=== PATIENT | male | born 1960 ===

== ENCOUNTER 2017-10-01 11:52 | Inpatient (IN) ==
[2017-10-01 14:40] LABS: Basophils % 0.2 % (0.0-0.8); Eosinophils # 0.2 10*3/uL (0.0-0.87); Hemoglobin 14.5 GM/DL (14.0-18.0); Immature Granulocytes % 0.2 %; Immature Granulocytes Absolute 0.01 #; Lymphocytes # 1.4 10*3/uL (1.4-4.0); Lymphocytes % 24.8 % (21.2-54.2); Mean Corpuscular HGB Conc 33.7 GM/DL (32-36); Mean Corpuscular Hemoglobin 31 PG (27-34); Mean Corpuscular Volume 90.7 FL (87-102); Mean Platelet Volume 9.8 FL (9.6-12.0); Monocytes # 0.3 10*3/uL (0.11-0.8); Monocytes % 5.8 % (1.7-12.7); Neutrophils # 3.8 10*3/uL (1.4-7.4); Platelet Count 229 T/CUMM (130-400); Red Blood Count 4.74 MC/CUMM (3.8-5.5); Red Cell Distribution Width 12.8 % (9.3-17.3); White Blood Count 5.7 T/CUMM (4-12)
[2017-10-01 15:05] LABS: Calcium 8.7 MG/DL (8.5-10.1); Potassium 3.7 MMOL/L (3.5-5.1)
[2017-10-01 20:42] LABS: Apearance,Urine CLEAR (Clear); Bacteria,Urine Occasional /HPF (Few); Bilirubin,Urine Negative (Negative); Blood, Urine Negative (Negative); Glucose,Urine (UA) >=500 mg/dL (Negative); Ketones,Urine Negative (Negative); Mucus,Urine Occasional /LPF (Occasional); Nitrite,Urine Negative (Negative); Protein,Urine Negative; Urine Color Yellow (Yellow); Urine Specific Gravity 1.008 (1.001-1.035); WBC,Urine 1 /HPF (0-6)
[2017-10-01 21:04] LABS: Troponin I Only 0.163 NG/ML (0.00-0.045)
[2017-10-02 05:21] LABS: Basophils % 0.5 % (0.0-0.8); Eosinophils # 0.2 10*3/uL (0.0-0.87); Eosinophils % 3.8 % (0.00-10.9); Hemoglobin 13.4 GM/DL (14.0-18.0); Immature Granulocytes % 0.2 %; Immature Granulocytes Absolute 0.01 #; Lymphocytes # 1.7 10*3/uL (1.4-4.0); Lymphocytes % 27.2 % (21.2-54.2); Mean Corpuscular HGB Conc 33.5 GM/DL (32-36); Mean Corpuscular Hemoglobin 31 PG (27-34); Mean Corpuscular Volume 91.1 FL (87-102); Mean Platelet Volume 9.9 FL (9.6-12.0); Monocytes # 0.4 10*3/uL (0.11-0.8); Monocytes % 6.8 % (1.7-12.7); Neutrophils # 3.9 10*3/uL (1.4-7.4); Neutrophils % 61.5 % (38.7-73.9); Platelet Count 207 T/CUMM (130-400); Red Blood Count 4.39 MC/CUMM (3.8-5.5); Red Cell Distribution Width 12.7 % (9.3-17.3); White Blood Count 6.3 T/CUMM (4-12)
[2017-10-02 05:42] LABS: Troponin I Only 0.163 NG/ML (0.00-0.045)
[2017-10-02 05:45] LABS: Calcium 8.2 MG/DL (8.5-10.1); Osmolality,Calculated 287.7 MOS/KG (273-304); Potassium 3.4 MMOL/L (3.5-5.1); Risk Ratio 2.42; Thyroid Stimulating Hormone 0.889 uIU/ml (0.358-3.74); VLDL CHOLESTEROL 16.2 MG/DL
[2017-10-03 05:48] LABS: Basophils % 0.2 % (0.0-0.8); Eosinophils # 0.2 10*3/uL (0.0-0.87); Eosinophils % 2.3 % (0.00-10.9); Hematocrit 38.9 VOL% (42.0-52.0); Hemoglobin 13.5 GM/DL (14.0-18.0); Immature Granulocytes % 0.3 %; Immature Granulocytes Absolute 0.02 #; Lymphocytes # 1.3 10*3/uL (1.4-4.0); Mean Corpuscular HGB Conc 34.7 GM/DL (32-36); Mean Corpuscular Hemoglobin 31 PG (27-34); Mean Corpuscular Volume 88.8 FL (87-102); Monocytes # 0.4 10*3/uL (0.11-0.8); Monocytes % 6.4 % (1.7-12.7); Neutrophils # 4.7 10*3/uL (1.4-7.4); Neutrophils % 70.8 % (38.7-73.9); Platelet Count 209 T/CUMM (130-400); Red Blood Count 4.38 MC/CUMM (3.8-5.5); Red Cell Distribution Width 12.9 % (9.3-17.3); White Blood Count 6.6 T/CUMM (4-12)
[2017-10-03 06:06] LABS: Calcium 8.5 MG/DL (8.5-10.1); Calcium 8.6 MG/DL (8.5-10.1); Osmolality,Calculated 290.8 MOS/KG (273-304); Potassium 3.6 MMOL/L (3.5-5.1)
[2017-10-04 04:54] LABS: Basophils % 0.3 % (0.0-0.8); Eosinophils # 0.2 10*3/uL (0.0-0.87); Hematocrit 38.9 VOL% (42.0-52.0); Hemoglobin 12.9 GM/DL (14.0-18.0); Immature Granulocytes % 0.5 %; Immature Granulocytes Absolute 0.03 #; Lymphocytes # 1.6 10*3/uL (1.4-4.0); Mean Corpuscular HGB Conc 33.2 GM/DL (32-36); Mean Corpuscular Hemoglobin 31 PG (27-34); Mean Corpuscular Volume 92.2 FL (87-102); Monocytes # 0.5 10*3/uL (0.11-0.8); Monocytes % 8.4 % (1.7-12.7); Neutrophils # 3.8 10*3/uL (1.4-7.4); Neutrophils % 61.8 % (38.7-73.9); Platelet Count 201 T/CUMM (130-400); Red Blood Count 4.22 MC/CUMM (3.8-5.5); White Blood Count 6.1 T/CUMM (4-12)
[2017-10-04 05:13] LABS: Calcium 8.2 MG/DL (8.5-10.1); Potassium 3.6 MMOL/L (3.5-5.1)
[2017-10-04 13:26] LABS: ABG Base Excess 1.1 MMOL/L (-2.5-2.5); ABG HCO3 26.5 MMOL/L (20-26); ABG Oxygen Saturation 94.5 % (95-100); ABG PCO2 44.6 MM HG (35-48); ABG PH 7.391 (7.35-7.45); ABG PO2 79.4 MM HG (80-95); ABG TCO2 27.8 MMOL/L (23-27)
[2017-10-05 05:20] LABS: Basophils % 0.4 % (0.0-0.8); Eosinophils # 0.2 10*3/uL (0.0-0.87); Eosinophils % 3.2 % (0.00-10.9); Hematocrit 38.9 VOL% (42.0-52.0); Hemoglobin 13.1 GM/DL (14.0-18.0); Immature Granulocytes % 0.5 %; Immature Granulocytes Absolute 0.03 #; Lymphocytes # 1.6 10*3/uL (1.4-4.0); Lymphocytes % 27.9 % (21.2-54.2); Mean Corpuscular HGB Conc 33.7 GM/DL (32-36); Mean Corpuscular Hemoglobin 31 PG (27-34); Mean Corpuscular Volume 91.1 FL (87-102); Mean Platelet Volume 10.1 FL (9.6-12.0); Monocytes # 0.4 10*3/uL (0.11-0.8); Monocytes % 7.7 % (1.7-12.7); Neutrophils # 3.4 10*3/uL (1.4-7.4); Neutrophils % 60.3 % (38.7-73.9); Platelet Count 199 T/CUMM (130-400); Red Blood Count 4.27 MC/CUMM (3.8-5.5); White Blood Count 5.7 T/CUMM (4-12)
[2017-10-05 05:44] LABS: Calcium 8.2 MG/DL (8.5-10.1); Osmolality,Calculated 289.8 MOS/KG (273-304); Potassium 3.7 MMOL/L (3.5-5.1)
[2017-10-05 11:48] LABS: ABG Base Excess 1.5 MMOL/L (-2.5-2.5); ABG HCO3 24.4 MMOL/L (20-26); ABG Oxygen Saturation 99.3 % (95-100); ABG PCO2 33.2 MM HG (35-48); ABG PH 7.484 (7.35-7.45); ABG TCO2 25.4 MMOL/L (23-27); Glucose Heart Surgery 154 MG/DL (74-106); Hemoglobin Heart Surgery 12.8 G/DL (14.0-18.0); Ionized Calcium Arterial 1.09 MMOL/L (1.21-1.46); PCO2 Patient Temp Arterial 33.2 MMHG; PH Patient Temp Arterial 7.484; Patient Temperature 37 CELCIUS; Potassium Heart/CVR 3.9 MMOL/L (3.5-5.1); Sodium Heart/CVR 142 MMOL/L (135-145)
[2017-10-05 12:29] LABS: Apearance,Urine CLEAR (Clear); Bilirubin,Urine Negative (Negative); Blood, Urine Small mg/dL (Negative); Glucose,Urine (UA) Negative (Negative); Ketones,Urine Negative (Negative); Nitrite,Urine Negative (Negative); Protein,Urine Negative; RBC,Urine 2 /HPF (0-4); Squamous Epithelial Cell,Urine Occasional /HPF (0-10); Urine Color Yellow (Yellow); Urine Urobilinogen < 2.0 EU/DL (0.2-1.0); WBC,Urine <1 /HPF (0-6)
[2017-10-05 13:15] LABS: Hemoglobin Heart Surgery 9.1 G/DL (14.0-18.0); PCO2 Patient Temp Venous 31.1 MM HG; PH Patient Temp Venous 7.549; PO2 Patient Temp Venous 43.6 MM HG; Potassium Heart/CVR 4.3 MMOL/L (3.5-5.1); VBG HCO3 26.9 MEQ/L (24-28); VBG Oxygen Saturation 85.6 %; VBG PCO2 33.9 MMHG (41-51); VBG PH 7.518; VBG PO2 50.2 MMHG (17-40)
[2017-10-05 13:52] LABS: Hemoglobin Heart Surgery 9.1 G/DL (14.0-18.0); PCO2 Patient Temp Venous 30.1 MM HG; PH Patient Temp Venous 7.543; Potassium Heart/CVR 4.2 MMOL/L (3.5-5.1); VBG Base Excess 2.9 MEQ/L (0-4); VBG HCO3 25.8 MEQ/L (24-28); VBG Oxygen Saturation 86.5 %; VBG PCO2 32.9 MMHG (41-51); VBG PH 7.512; VBG PO2 52.9 MMHG (17-40)
[2017-10-05 14:15] LABS: ABG Base Excess 1.3 MMOL/L (-2.5-2.5); ABG HCO3 25.2 MMOL/L (20-26); ABG Oxygen Saturation 98.9 % (95-100); ABG PCO2 37.2 MM HG (35-48); ABG PH 7.449 (7.35-7.45); ABG PO2 314.9 MM HG (80-95); ABG TCO2 26.4 MMOL/L (23-27); Glucose Heart Surgery 207 MG/DL (74-106); Hemoglobin Heart Surgery 9.5 G/DL (14.0-18.0); Ionized Calcium Arterial 1.11 MMOL/L (1.21-1.46); Potassium Heart/CVR 3.8 MMOL/L (3.5-5.1); Sodium Heart/CVR 136 MMOL/L (135-145)
[2017-10-05 15:54] LABS: ABG Base Excess 0.6 MMOL/L (-2.5-2.5); ABG HCO3 23.5 MMOL/L (20-26); ABG Oxygen Saturation 98.7 % (95-100); ABG PCO2 31.2 MM HG (35-48); ABG PH 7.495 (7.35-7.45); ABG PO2 223.9 MM HG (80-95); ABG TCO2 24.5 MMOL/L (23-27); Glucose Heart Surgery 192 MG/DL (74-106); Hemoglobin Heart Surgery 9.1 G/DL (14.0-18.0); Potassium Heart/CVR 3.6 MMOL/L (3.5-5.1)
[2017-10-05 16:13] LABS: Albumin 2.4 G/DL (3.4-5.0); Bilirubin,Total 1.1 MG/DL (0.2-1.0); Calcium 8.5 MG/DL (8.5-10.1); Osmolality,Calculated 290.8 MOS/KG (273-304); Potassium 3.7 MMOL/L (3.5-5.1); Total Protein 4.6 G/DL (6.4-8.3)
[2017-10-05 16:15] LABS: CKMB % 7.9 %
[2017-10-05 16:20] LABS: Basophils % 0.1 % (0.0-0.8); Eosinophils # 0.1 10*3/uL (0.0-0.87); Eosinophils % 1.1 % (0.00-10.9); Hematocrit 25.4 VOL% (42.0-52.0); Hemoglobin 8.8 GM/DL (14.0-18.0); Immature Granulocytes % 0.6 %; Immature Granulocytes Absolute 0.05 #; Lymphocytes # 1.5 10*3/uL (1.4-4.0); Lymphocytes % 18.1 % (21.2-54.2); Mean Corpuscular HGB Conc 34.6 GM/DL (32-36); Mean Corpuscular Hemoglobin 32 PG (27-34); Mean Corpuscular Volume 92.4 FL (87-102); Mean Platelet Volume 10.1 FL (9.6-12.0); Monocytes # 0.4 10*3/uL (0.11-0.8); Monocytes % 4.8 % (1.7-12.7); Neutrophils # 6.2 10*3/uL (1.4-7.4); Neutrophils % 75.3 % (38.7-73.9); Platelet Count 203 T/CUMM (130-400); Red Blood Count 2.75 MC/CUMM (3.8-5.5); White Blood Count 8.3 T/CUMM (4-12)
[2017-10-05 16:26] LABS: INR 1.1; PT Patient Result 11.6 SECS
[2017-10-05 16:32] LABS: Troponin I Only 17.8 NG/ML (0.00-0.045)
[2017-10-05 17:35] LABS: ABG HCO3 23.9 MMOL/L (20-26); ABG Oxygen Saturation 98.8 % (95-100); ABG PCO2 32.5 MM HG (35-48); ABG PH 7.485 (7.35-7.45); ABG PO2 191.2 MM HG (80-95); ABG TCO2 24.9 MMOL/L (23-27); Glucose Heart Surgery 188 MG/DL (74-106); Hemoglobin Heart Surgery 11.4 G/DL (14.0-18.0); Potassium Heart/CVR 4.4 MMOL/L (3.5-5.1)
[2017-10-05 18:42] LABS: ABG Base Excess 1.3 MMOL/L (-2.5-2.5); ABG Oxygen Saturation 98.3 % (95-100); ABG PCO2 35.9 MM HG (35-48); ABG PO2 149.3 MM HG (80-95); ABG TCO2 26.1 MMOL/L (23-27); Glucose Heart Surgery 168 MG/DL (74-106); Hemoglobin Heart Surgery 10.7 G/DL (14.0-18.0); Potassium Heart/CVR 4.1 MMOL/L (3.5-5.1)
[2017-10-05 20:58] LABS: ABG Base Excess 0.3 MMOL/L (-2.5-2.5); ABG HCO3 25.4 MMOL/L (20-26); ABG Oxygen Saturation 98.1 % (95-100); ABG PCO2 43.1 MM HG (35-48); ABG PH 7.389 (7.35-7.45); ABG PO2 147.7 MM HG (80-95); ABG TCO2 26.8 MMOL/L (23-27); Glucose Heart Surgery 137 MG/DL (74-106); Hemoglobin Heart Surgery 10.3 G/DL (14.0-18.0)
[2017-10-05 22:49] LABS: ABG Base Excess -1.4 MMOL/L (-2.5-2.5); ABG HCO3 23.9 MMOL/L (20-26); ABG Oxygen Saturation 97.5 % (95-100); ABG PCO2 42.7 MM HG (35-48); ABG PH 7.366 (7.35-7.45); ABG PO2 123.9 MM HG (80-95); ABG TCO2 25.2 MMOL/L (23-27); Glucose Heart Surgery 129 MG/DL (74-106); Hemoglobin Heart Surgery 9.7 G/DL (14.0-18.0); Potassium Heart/CVR 4.2 MMOL/L (3.5-5.1)
[2017-10-05 23:54] LABS: ABG Base Excess 0.1 MMOL/L (-2.5-2.5); ABG HCO3 24.5 MMOL/L (20-26); ABG Oxygen Saturation 98.1 % (95-100); ABG PCO2 46.6 MM HG (35-48); ABG PH 7.353 (7.35-7.45); ABG TCO2 23.9 MMOL/L (23-27); Glucose Heart Surgery 134 MG/DL (74-106); Hematocrit Heart Surgery 28.6 PERCENT (42-52); Hemoglobin Heart Surgery 9.2 G/DL (14.0-18.0)
[2017-10-06 00:27] LABS: CKMB % 6.6 %
[2017-10-06 00:50] LABS: Troponin I Only 28.7 NG/ML (0.00-0.045)
[2017-10-06 02:02] LABS: ABG Base Excess -0.4 MMOL/L (-2.5-2.5); ABG HCO3 24.1 MMOL/L (20-26); ABG Oxygen Saturation 96.7 % (95-100); ABG PCO2 47.9 MM HG (35-48); ABG PH 7.339 (7.35-7.45); ABG PO2 89.2 MM HG (80-95); ABG TCO2 23.5 MMOL/L (23-27); Glucose Heart Surgery 125 MG/DL (74-106); Hematocrit Heart Surgery 31.6 PERCENT (42-52); Hemoglobin Heart Surgery 10.2 G/DL (14.0-18.0); Potassium Heart/CVR 4.2 MMOL/L (3.5-5.1)
[2017-10-06 03:01] LABS: ABG Base Excess -0.4 MMOL/L (-2.5-2.5); ABG HCO3 25.1 MMOL/L (20-26); ABG Oxygen Saturation 96.7 % (95-100); ABG PCO2 45.2 MM HG (35-48); ABG PH 7.363 (7.35-7.45); ABG PO2 101.4 MM HG (80-95); ABG TCO2 26.5 MMOL/L (23-27); Glucose Heart Surgery 111 MG/DL (74-106); Hemoglobin Heart Surgery 10.8 G/DL (14.0-18.0); Potassium Heart/CVR 4.8 MMOL/L (3.5-5.1)
[2017-10-06 03:11] LABS: Hematocrit 29.3 VOL% (42.0-52.0); Hemoglobin 10.1 GM/DL (14.0-18.0); Immature Granulocytes % 0.3 %; Immature Granulocytes Absolute 0.03 #; Lymphocytes # 0.7 10*3/uL (1.4-4.0); Lymphocytes % 7.2 % (21.2-54.2); Mean Corpuscular HGB Conc 34.5 GM/DL (32-36); Mean Corpuscular Hemoglobin 30 PG (27-34); Mean Platelet Volume 10.1 FL (9.6-12.0); Monocytes # 0.3 10*3/uL (0.11-0.8); Monocytes % 2.7 % (1.7-12.7); Neutrophils # 8.6 10*3/uL (1.4-7.4); Neutrophils % 89.8 % (38.7-73.9); Platelet Count 178 T/CUMM (130-400); Red Blood Count 3.33 MC/CUMM (3.8-5.5); Red Cell Distribution Width 14.1 % (9.3-17.3); White Blood Count 9.6 T/CUMM (4-12)
[2017-10-06 03:41] LABS: Albumin 3.3 G/DL (3.4-5.0); Bilirubin,Direct 0.32 MG/DL (0.0-0.20); Bilirubin,Total 1.9 MG/DL (0.2-1.0); Calcium 8.3 MG/DL (8.5-10.1); Osmolality,Calculated 279.4 MOS/KG (273-304); Potassium 4.7 MMOL/L (3.5-5.1); Total Protein 5.9 G/DL (6.4-8.3)
[2017-10-07 04:29] LABS: Basophils % 0.1 % (0.0-0.8); Hematocrit 28.8 VOL% (42.0-52.0); Hemoglobin 9.6 GM/DL (14.0-18.0); Immature Granulocytes % 0.5 %; Immature Granulocytes Absolute 0.05 #; Lymphocytes # 1.2 10*3/uL (1.4-4.0); Lymphocytes % 11.3 % (21.2-54.2); Mean Corpuscular HGB Conc 33.3 GM/DL (32-36); Mean Corpuscular Hemoglobin 30 PG (27-34); Mean Platelet Volume 10.5 FL (9.6-12.0); Monocytes # 0.8 10*3/uL (0.11-0.8); Monocytes % 7.9 % (1.7-12.7); Neutrophils # 8.2 10*3/uL (1.4-7.4); Neutrophils % 80.2 % (38.7-73.9); Platelet Count 171 T/CUMM (130-400); Red Cell Distribution Width 14.6 % (9.3-17.3); White Blood Count 10.2 T/CUMM (4-12)
[2017-10-07 04:50] LABS: Calcium 8.2 MG/DL (8.5-10.1); Osmolality,Calculated 290.3 MOS/KG (273-304); Potassium 4.5 MMOL/L (3.5-5.1)
[2017-10-07 04:52] LABS: Bilirubin,Direct 0.19 MG/DL (0.0-0.20); Bilirubin,Indirect 0.4 MG/DL (0.0-1.0); Bilirubin,Total 0.6 MG/DL (0.2-1.0)
[2017-10-07 04:55] LABS: Albumin 3.1 G/DL (3.4-5.0); CKMB % 4.7 %; Calcium 8.4 MG/DL (8.5-10.1); Osmolality,Calculated 292.1 MOS/KG (273-304); Potassium 4.4 MMOL/L (3.5-5.1)
[2017-10-07 04:56] LABS: Troponin I Only 15.6 NG/ML (0.00-0.045)
[2017-10-08 04:41] LABS: Basophils % 0.1 % (0.0-0.8); Eosinophils % 0.2 % (0.00-10.9); Hematocrit 29.6 VOL% (42.0-52.0); Hemoglobin 9.5 GM/DL (14.0-18.0); Immature Granulocytes % 0.5 %; Immature Granulocytes Absolute 0.05 #; Lymphocytes % 19.3 % (21.2-54.2); Mean Corpuscular HGB Conc 32.1 GM/DL (32-36); Mean Corpuscular Hemoglobin 30 PG (27-34); Mean Corpuscular Volume 93.7 FL (87-102); Monocytes % 9.8 % (1.7-12.7); Neutrophils # 7.1 10*3/uL (1.4-7.4); Neutrophils % 70.1 % (38.7-73.9); Platelet Count 187 T/CUMM (130-400); Red Blood Count 3.16 MC/CUMM (3.8-5.5); Red Cell Distribution Width 14.6 % (9.3-17.3); White Blood Count 10.1 T/CUMM (4-12)
[2017-10-08 05:07] LABS: Calcium 8.1 MG/DL (8.5-10.1); Potassium 4.3 MMOL/L (3.5-5.1)
[2017-10-08 05:16] LABS: Bilirubin,Indirect 0.7 MG/DL (0.0-1.0)
[2017-10-08 05:18] LABS: Alanine Aminotransferase 28 U/L (16-61); Albumin 2.9 G/DL (3.4-5.0); Alkaline Phosphatase 36 U/L (45-117); Aspartate Amino Transferase 34 U/L (0-37); Blood Urea Nitrogen 26 MG/DL (7-18); Calcium 8.2 MG/DL (8.5-10.1); Glucose 138 MG/DL (74-106); Potassium 4.2 MMOL/L (3.5-5.1); Sodium 143 MMOL/L (136-145); Total Protein 5.4 G/DL (6.4-8.3)
[2017-10-09 04:27] LABS: Calcium 8.1 MG/DL (8.5-10.1); Potassium 3.8 MMOL/L (3.5-5.1)
[2017-10-10 02:42] LABS: Basophils % 0.3 % (0.0-0.8); Eosinophils % 0.4 % (0.00-10.9); Hematocrit 26.9 VOL% (42.0-52.0); Hemoglobin 8.9 GM/DL (14.0-18.0); Immature Granulocytes % 0.6 %; Immature Granulocytes Absolute 0.05 #; Lymphocytes % 24.4 % (21.2-54.2); Mean Corpuscular HGB Conc 33.1 GM/DL (32-36); Mean Corpuscular Hemoglobin 31 PG (27-34); Mean Corpuscular Volume 93.1 FL (87-102); Monocytes # 0.8 10*3/uL (0.11-0.8); Monocytes % 9.5 % (1.7-12.7); Neutrophils # 5.2 10*3/uL (1.4-7.4); Neutrophils % 64.8 % (38.7-73.9); Platelet Count 243 T/CUMM (130-400); Red Blood Count 2.89 MC/CUMM (3.8-5.5)
[2017-10-10 03:06] LABS: Alanine Aminotransferase 26 U/L (16-61); Albumin 3.1 G/DL (3.4-5.0); Alkaline Phosphatase 37 U/L (45-117); Aspartate Amino Transferase 20 U/L (0-37); Blood Urea Nitrogen 31 MG/DL (7-18); Calcium 8.5 MG/DL (8.5-10.1); Glucose 127 MG/DL (74-106); Osmolality,Calculated 291.1 MOS/KG (273-304); Sodium 142 MMOL/L (136-145); Total Protein 6.3 G/DL (6.4-8.3)
[2017-10-10 03:19] LABS: Bilirubin,Indirect 0.5 MG/DL (0.0-1.0)
[2017-10-10 15:59] LABS: INR 0.9
[2017-10-11 05:10] LABS: Basophils % 0.3 % (0.0-0.8); Eosinophils # 0.1 10*3/uL (0.0-0.87); Eosinophils % 1.4 % (0.00-10.9); Hematocrit 27.6 VOL% (42.0-52.0); Hemoglobin 9.1 GM/DL (14.0-18.0); Immature Granulocytes % 0.8 %; Immature Granulocytes Absolute 0.05 #; Lymphocytes # 1.9 10*3/uL (1.4-4.0); Lymphocytes % 29.4 % (21.2-54.2); Mean Corpuscular Hemoglobin 30 PG (27-34); Mean Corpuscular Volume 92.3 FL (87-102); Mean Platelet Volume 9.8 FL (9.6-12.0); Monocytes # 0.7 10*3/uL (0.11-0.8); Monocytes % 9.9 % (1.7-12.7); NRBC # 0.04 10*3/uL; Neutrophils # 3.8 10*3/uL (1.4-7.4); Neutrophils % 58.2 % (38.7-73.9); Platelet Count 293 T/CUMM (130-400); Red Blood Count 2.99 MC/CUMM (3.8-5.5); Red Cell Distribution Width 13.8 % (9.3-17.3); White Blood Count 6.5 T/CUMM (4-12)
[2017-10-11 05:44] LABS: Bilirubin,Indirect 0.5 MG/DL (0.0-1.0)
[2017-10-11 05:48] LABS: Alanine Aminotransferase 26 U/L (16-61); Alkaline Phosphatase 41 U/L (45-117); Aspartate Amino Transferase 19 U/L (0-37); Blood Urea Nitrogen 22 MG/DL (7-18); Calcium 8.6 MG/DL (8.5-10.1); Glucose 110 MG/DL (74-106); Osmolality,Calculated 286.1 MOS/KG (273-304); Potassium 3.5 MMOL/L (3.5-5.1); Sodium 142 MMOL/L (136-145); Total Protein 6.2 G/DL (6.4-8.3)
[2017-10-12 02:25] LABS: Basophils % 0.4 % (0.0-0.8); Eosinophils # 0.1 10*3/uL (0.0-0.87); Eosinophils % 1.2 % (0.00-10.9); Hematocrit 27.9 VOL% (42.0-52.0); Hemoglobin 9.2 GM/DL (14.0-18.0); Immature Granulocytes Absolute 0.07 #; Lymphocytes # 1.5 10*3/uL (1.4-4.0); Lymphocytes % 21.8 % (21.2-54.2); Mean Corpuscular Hemoglobin 31 PG (27-34); Mean Corpuscular Volume 92.7 FL (87-102); Mean Platelet Volume 9.3 FL (9.6-12.0); Monocytes # 0.7 10*3/uL (0.11-0.8); Monocytes % 9.6 % (1.7-12.7); NRBC # 0.03 10*3/uL; Neutrophils # 4.5 10*3/uL (1.4-7.4); Platelet Count 324 T/CUMM (130-400); Red Blood Count 3.01 MC/CUMM (3.8-5.5); Red Cell Distribution Width 13.9 % (9.3-17.3); White Blood Count 6.8 T/CUMM (4-12)
[2017-10-12 02:41] LABS: Osmolality,Calculated 281.3 MOS/KG (273-304); Potassium 3.6 MMOL/L (3.5-5.1)
[2017-10-12 12:05] VITALS: BP 120/73
== END 2017-10-12 14:24 | disposition home or self-care (01) | DRG 246 ==
LOC: N.TELEN → SUATTDRO 13:45 → N.CVR 10-05 11:57 → N.TELES 10-06 09:56
PROVIDERS: ADMIT Internal Medicine; ATTEND Emergency Medicine
PROC: CLCCHCL (ICD-10-PCS; 2017-10-03 08:15)